=== PATIENT | male | born 1980 | race American Indian/Alaskan Native ===

== ENCOUNTER 2019-06-10 10:11 | Emergency (ER) | payer SELFPAY ==
[2019-06-10 12:54] VITALS: BP 163/86
--- NOTE | 2019-06-10 14:25 | Emergency Department Report ---
Chief Complaint: High BP Stated Complaint: HBP Time Seen by Provider: 06/10/19 12:24 - HPI History of Present Illness: 39-year-old -[place] male with a 6 reported history of hypertension which currently untreated presents emergency department for reevaluation of his blood pressure. He states that he went to donate plasma but was refused due to his hypertension. States he is asymptomatic at current reports no headache, dizziness no chest pain or shortness of breath no blurred vision. He still reports not taking his his medication due to a recent incarceration but is due to start a job and insurance in the next week. - ROS Review of Systems: Symptoms are negative except as reported in the HPI - Exam Vital Signs: Vital Signs 06/10/19 06/10/19 10:15 12:53 Temperature 98.0 F 98.6 F Pulse Rate 76 75 Respiratory 16 16 Rate Blood Pressure 195/116 Blood Pressure 163/86 [Right] O2 Sat by Pulse 99 99 Oximetry Physical Exam: Vital signs stable General: Patient is well nourished, well developed, awake and alert, resting comfortably in no acute distress Head: Normocephalic and atraumatic Eyes: Normal inspection, extraocular muscles intact, no conjunctival pallor Ear, nose, throat: Normal external exam Neck: Normal range of motion Respiratory: Patient is in no respiratory distress, lungs CTAB Cardiovascular: Patient is not tachycardic, RRR without murmur appreciated GI: Abd SNT with no guarding or rebound; +BS normoactive x 4, no tympanny to percussion Back: Normal inspection of the back with good strength and range of motion throughout all ext Extremities: pulses intact with good cap refills, no LE pitting edema or calf tenderness Neuro: The patient is alert and oriented to person, place, and time, gary ropriately conversive, with 5/5 bilat UE/LE strength, no gross motor or sensory defects noted. Coordination appears to be adequate. Skin: Warm, dry, and intact MSE screening note: Focused history and physical exam performed. Due to findings the following was ordered: 39-year-old male with hypertension asymptomatic no cardiovascular or neurological symptoms. He denies being dizzy or headache or blurred vision. No chest pain or palpitations he feels normal. States he would like to restart taking his blood pressure medication however ED Disposition for MSE Clinical Impression: Hypertension Disposition: Z- MED SCREENING EXAM-LEFT Condition: Stable Instructions: Hypertension (ED), DASH Eating Plan (ED) Additional Instructions: During the patients emergency department stay they were noted to have at least one blood pressure measure reading greater than 120/80. Due to this measurement I verbally educated the patient on hypertension and recommended they follow-up with their primary care doctor in the next 5-7 days for repeat measurement of their blood pressure and if it remains persistently elevated that their primary care doctor may start them on medications to control their blood pressure. I also recommended several lifestyle modifications (weight loss, dietary sodium restriction, increase physical activity and moderate alcohol consumption). Referrals: ANTONIO BRUCE MD [Staff Physician] - 2-3 Days
== END 2019-06-10 15:11 | disposition left against medical advice (07) ==
LOC: ED 10:11
DX: I10 Essential (primary) hypertension (principal)
CPT/HCPCS: 99281